=== PATIENT | female | born 1985 | race Caucasian/White ===

== ENCOUNTER 2019-07-30 13:32 | Outpatient (CLI) | payer BC, OTHER | END 2019-07-30 23:59 | disposition home or self-care (01) | LOC: CFH 13:32 | PROVIDERS: ATTEND Internal Medicine Cardiovascular Disease | DX: Z82.41 Family history of sudden cardiac death (principal) | CPT/HCPCS: 93306; 93356 ==

== ENCOUNTER 2020-03-27 09:25 | Outpatient (CLI) | payer BC, OTHER | END 2020-03-27 23:59 | disposition home or self-care (01) | LOC: STAR 09:25 | PROVIDERS: ATTEND Obstetrics & Gynecology | DX: Z20.822 Contact with and (suspected) exposure to COVID-19 (principal) | CPT/HCPCS: 87635 ==

== ENCOUNTER 2020-03-31 06:09 | Inpatient (IN) | payer SELFPAY ==
[~2020-03-31] VITALS: Ht 165.1 cm; Wt 95.0 kg
[2020-03-31 06:18] VITALS: BP 142/87
[2020-03-31] MEDS ORDERED: OXYTOCIN 30U/ 0.9% NaCL 500ML 500 ML ONE (06:18)
[2020-03-31] MEDS ORDERED: NEWBORN KIT ONE (06:18)
[2020-03-31] MEDS ORDERED: MISOPROSTOL 25 MCG TABLET ONE ×2 (06:19→11:41)
[2020-03-31] MEDS ORDERED: PLEASE ENTER HEIGHT AND WEIGHT MC SCH (06:30)
[2020-03-31] MEDS ORDERED: METOCLOPRAMIDE 5 MG/ML, 2ML IVPush PRN (06:30)
[2020-03-31] MEDS ORDERED: ONDANSETRON 2MG/ML, 2ML IVPush PRN ×2 (06:30→23:00)
[2020-03-31] MEDS ORDERED: ALUMINUM/MAG/SIMETHICONE 30 ML UDC PO PRN (06:30)
[2020-03-31] MEDS ORDERED: TERBUTALINE 1 MG/ML, 1ML IVPush PRN (06:30)
[2020-03-31] MEDS ORDERED: FENTANYL PF 100 MCG/2ML IVPush PRN (06:30)
[2020-03-31] MEDS ORDERED: LACTATED RINGERS 1,000 ML IV SCH ×2 (06:30→14:30)
[2020-03-31] MEDS ORDERED: SODIUM CITRATE/CITRIC ACID 30 ML UDC PO PRN (06:30)
[2020-03-31] MEDS ORDERED: D5%-LACTATED RINGERS 1,000 ML IV SCH (06:30)
[2020-03-31] MEDS ORDERED: CALCIUM CARBONATE 500 MG TAB.CHEW PO PRN (06:30)
[2020-03-31] MEDS ORDERED: TERBUTALINE 1 MG/ML, 1ML SQ PRN (06:30)
[2020-03-31] MEDS ORDERED: SODIUM CHLORIDE FLUSH 10ML SYR IVF PRN (06:30)
[2020-03-31] MEDS ORDERED: MISOPROSTOL 25 MCG TABLET VG PRN (06:30)
[2020-03-31] MEDS ORDERED: FENTANYL PF 100 MCG/2ML IV PRN ×2 (06:30→23:00)
[2020-03-31] MEDS ORDERED: OXYTOCIN 30U/ 0.9% NaCL 500ML 500 ML IV ONE (06:30)
[2020-03-31] MEDS ORDERED: PREN1TAB60 PO (07:13)
[2020-03-31 07:25] LABS: BASOPHILS % (AUTO) 0 % (0-1); EOSINOPHILS % (AUTO) 1 % (1-7); LYMPHOCYTES % (AUTO) 16 % (22-44); MEAN CORPUSCULAR HEMOGLOBIN 27.7 pg (27.0-34.8); MEAN CORPUSCULAR HGB CONC 32.2 g/dL (32.4-35.8); MONOCYTES % (AUTO) 5 % (2-9); NEUTROPHILS % (AUTO) 78 % (42-75); PLATELET COUNT 344 x10^3/uL (130-400); RED BLOOD COUNT 3.75 x10^6/uL (3.82-5.3); RED CELL DISTRIBUTION WIDTH 15.3 % (9.6-15.2)
[2020-03-31 07:38] LABS: MD NO
[2020-03-31 10:18] LABS: ALANINE AMINOTRANSFERASE 14 U/L (12-78); ALBUMIN 2.2 g/dL (3.4-5.0); ANION GAP 10 mmol/L (5-15); CALCIUM 8.6 mg/dL (8.5-10.1); CHLORIDE 109 mmol/L (98-107)
[2020-03-31 10:20] LABS: ALKALINE PHOSPHATASE 120 U/L (45-117); BILIRUBIN,TOTAL 0.2 mg/dL (0.2-1.0); CREATININE 0.81 mg/dL (0.55-1.02)
[2020-03-31 11:14] LABS: MICROSCOPIC INDICATED
[2020-03-31] MEDS ORDERED: OXYTOCIN 30U/ 0.9% NaCL 500ML 500 ML IV PRN (13:00)
[2020-03-31] MEDS ORDERED: LACTATED RINGERS 1,000 ML IVBOLUS PRN (14:30)
[2020-03-31] MEDS ORDERED: FENTANYL/BUPIV./NS/PF 250 ML EPIDCONT SCH (14:30)
[2020-03-31] MEDS ORDERED: EPHEDRINE 50 MG/ML, 1ML IVPush PRN ×2 (14:30→23:00)
[2020-03-31] MEDS ORDERED: NALOXONE 0.4 MG/ML, 1ML IVPush PRN (14:30)
[2020-03-31] MEDS ORDERED: FENTANYL/BUPIV./NS/PF 250 ML EPIDCONT ONE (14:34)
[2020-03-31] MEDS ORDERED: BUPIVACAINE 0.25% ONE (14:34)
[2020-03-31] MEDS ORDERED: LABETALOL 5MG/ML, 20ML ONE (22:36)
[2020-03-31] MEDS ORDERED: MEPERIDINE/PF 25MG/0.5ML IVPush PRN (23:00)
[2020-03-31] MEDS ORDERED: OXYcodone 5 MG/5 ML ORAL.SOL UDC PO PRN (23:00)
[2020-03-31] MEDS ORDERED: LABETALOL 5MG/ML, 20ML IVPush PRN ×3 (23:00)
[2020-03-31] MEDS ORDERED: METOPROLOL 1 MG/ML, 5ML IV PRN (23:00)
[2020-03-31] MEDS ORDERED: PROMETHAZINE 25 MG/ML, 1ML IV PRN (23:00)
[2020-03-31] MEDS ORDERED: ALBUTEROL SULFATE 2.5 MG/3 ML NPPB PRN (23:00)
[2020-03-31] MEDS ORDERED: MIDAZOLAM 1 MG/ML, 2ML IV PRN (23:00)
[2020-03-31] MEDS ORDERED: LABETALOL 5MG/ML, 20ML IV PRN (23:00)
[2020-03-31] MEDS ORDERED: hydrALAzine 20 MG/ML, 1ML IVPush ONE (23:00)
[2020-03-31] MEDS ORDERED: HYDROcodone/APAP 7.5-325MG/15ML UDC PO PRN (23:00)
[2020-03-31] MEDS ORDERED: hydrALAzine 20 MG/ML, 1ML IV PRN (23:00)
[2020-03-31] MEDS ORDERED: HYDROmorphone 2 MG/ML, 1ML IVPush PRN (23:00)
[2020-03-31] MEDS ORDERED: ONDANSETRON 2MG/ML, 2ML ONE (23:59)
[2020-04-01] MEDS ORDERED: CARBOPROST TROMETHAMINE 250 MCG/ML, 1ML IM PRN (07:30)
[2020-04-01] MEDS ORDERED: ONDANSETRON 2MG/ML, 2ML IV PRN (07:30)
[2020-04-01] MEDS ORDERED: SIMETHICONE 80 MG CHEW TAB PO PRN (07:30)
[2020-04-01] MEDS ORDERED: MISOPROSTOL 200 MCG TABLET PR PRN (07:30)
[2020-04-01] MEDS ORDERED: [UNRECOGNIZED DRUG - CODE] PO (07:32)
[2020-04-01] MEDS ORDERED: LABETALOL 5MG/ML, 20ML IVPush ONE (08:00)
[2020-04-01] MEDS ORDERED: IBUPROFEN 600 MG TABLET ONE (08:08)
[2020-04-01] MEDS ORDERED: OXYTOCIN 30U/ 0.9% NaCL 500ML 500 ML ONE (08:08)
[2020-04-01] MEDS ORDERED: OXYcodone/APAP 5/325MG TABLET ONE (08:27)
[2020-04-01] MEDS: OXYcodone/APAP 5/325MG TABLET PO PRN ×3 (08:33→20:30)
[2020-04-01] MEDS: OXYTOCIN 30U/ 0.9% NaCL 500ML 500 ML IV SCH ×2 (08:34→17:30)
[2020-04-01] MEDS: PRENATAL VIT/IRON/FA 1 EACH TABLET PO SCH (09:00)
[2020-04-01 11:40] VITALS: BP 126/77
[2020-04-01] MEDS: DOCUSATE 100 MG CAPSULE PO PRN ×2 (13:46→19:19)
[2020-04-01] MEDS ORDERED: ACETAMINOPHEN 325 MG TABLET PO PRN ×3 (15:30→15:35)
[2020-04-01 17:10] VITALS: BP 119/72
[2020-04-01 19:10] VITALS: BP 129/78
[2020-04-01 20:36] LABS: BASOPHILS % (AUTO) 0 % (0-1); EOSINOPHILS % (AUTO) 0 % (1-7); LYMPHOCYTES % (AUTO) 10 % (22-44); MEAN CORPUSCULAR HEMOGLOBIN 27.3 pg (27.0-34.8); MEAN CORPUSCULAR HGB CONC 32.2 g/dL (32.4-35.8); MEAN PLATELET VOLUME 8.6 fL (7.4-10.4); MONOCYTES % (AUTO) 6 % (2-9); NEUTROPHILS % (AUTO) 84 % (42-75); PLATELET COUNT 302 x10^3/uL (130-400); RED BLOOD COUNT 3.52 x10^6/uL (3.82-5.3); RED CELL DISTRIBUTION WIDTH 15.5 % (9.6-15.2)
[2020-04-01 21:15] LABS: MD SCAN
[2020-04-01 23:30] VITALS: BP 129/74
[2020-04-02 05:30] VITALS: BP 120/80
[2020-04-02] MEDS ORDERED: MEASLES,MUMPS&RUBELLA VACC/PF 0.5 ML SQ-VACC ONE ×2 (07:00→11:25)
[2020-04-02 08:00] VITALS: BP 117/74
[2020-04-02] MEDS: OXYcodone/APAP 5/325MG TABLET PO PRN (16:10)
[2020-04-02] MEDS: PRENATAL VIT/IRON/FA 1 EACH TABLET PO SCH (16:10)
[2020-04-02] MEDS: DOCUSATE 100 MG CAPSULE PO PRN (16:10)
== END 2020-04-02 17:10 | disposition home or self-care (01) | DRG 807 ==
LOC: LDIP 06:09 → 2NW 04-01 09:40
PROVIDERS: ADMIT Obstetrics & Gynecology; ATTEND Obstetrics & Gynecology
PROC: 3E0P7VZ Introduction of Hormone into Female Reproductive, Via Natural or Artificial Opening (ICD-10-PCS; 2020-03-31)
PROC: 10907ZC Drainage of Amniotic Fluid, Therapeutic from Products of Conception, Via Natural or Artificial Opening (ICD-10-PCS; 2020-03-31)
PROC: 10H07YZ Insertion of Other Device into Products of Conception, Via Natural or Artificial Opening (ICD-10-PCS; 2020-03-31)
PROC: 0KQM0ZZ Repair Perineum Muscle, Open Approach (ICD-10-PCS; principal; 2020-04-01)
PROC: 10D07Z6 Extraction of Products of Conception, Vacuum, Via Natural or Artificial Opening (ICD-10-PCS; 2020-04-01)
DX: O75.81 Maternal exhaustion complicating labor and delivery (principal); Z37.0 Single live birth; O70.1 Second degree perineal laceration during delivery; Z3A.39 39 weeks gestation of pregnancy
CPT/HCPCS: 36415; J7121; 80053; 81001; 82570; 83615; 84156; 85025; 86592; 86850; 86900; G0378; J2405; J2590; J7120